=== PATIENT | female | born 1955 | race Caucasian/White ===

== ENCOUNTER → 2024-01-01 09:02 | Outpatient (REF) | payer MEDICARE, OTHER, SELFPAY | LOC: MRI 3T 09:02 | PROVIDERS: ATTENDING PHYSICIAN Otolaryngology Facial Plastic Surgery; FAMILY PHYSICIAN Family Medicine | DX: R42 Dizziness and giddiness (principal) | CPT/HCPCS: 70553; A9575 ==

== ENCOUNTER → 2024-01-10 16:35 | Outpatient (REF) | payer MEDICARE, OTHER, SELFPAY | LOC: HWWDC 16:35 | PROVIDERS: ATTENDING PHYSICIAN Family Medicine | DX: Z12.31 Encounter for screening mammogram for malignant neoplasm of breast (principal) | CPT/HCPCS: 77063; 77067 ==

== ENCOUNTER → 2024-07-07 09:14 | Outpatient (REF) | payer MEDICARE, OTHER, SELFPAY | LOC: WDC 09:14 | PROVIDERS: ATTENDING PHYSICIAN Family Medicine | DX: R92.30 Dense breasts, unspecified (principal) | CPT/HCPCS: 76641 ==